=== PATIENT | female | born 1950 | race Caucasian/White ===

== ENCOUNTER 2017-09-14 13:56 | Emergency (ER) | payer MEDICARE ==
[2017-09-14] MEDS: IBUPROFEN 600 MG TABLET. PO (15:17)
== END 2017-09-14 15:17 | disposition home or self-care (01) ==
LOC: ER 13:56
DX: M54.31 Sciatica, right side (principal); E11.9 Type 2 diabetes mellitus without complications; E03.9 Hypothyroidism, unspecified; I10 Essential (primary) hypertension; K21.9 Gastro-esophageal reflux disease without esophagitis; Z87.442 Personal history of urinary calculi; Z86.14 Personal history of Methicillin resistant Staphylococcus aureus infection; Z88.2 Allergy status to sulfonamides; Z88.1 Allergy status to other antibiotic agents; Z91.041 Radiographic dye allergy status
CPT/HCPCS: 99283

== ENCOUNTER → 2017-10-24 | Outpatient (CLI) | payer MEDICARE | END | disposition home or self-care (01) | LOC: MRI 13:47 | DX: M47.894 Other spondylosis, thoracic region (principal); G89.29 Other chronic pain | CPT/HCPCS: 72146 ==

== ENCOUNTER → 2018-02-14 | Outpatient (CLI) | payer MEDICARE | END | disposition home or self-care (01) | LOC: CT 12:51 | DX: N39.0 Urinary tract infection, site not specified (principal); K76.89 Other specified diseases of liver; Z87.442 Personal history of urinary calculi | CPT/HCPCS: 74176 ==

== ENCOUNTER → 2018-05-29 | Outpatient (CLI) | payer MEDICARE ==
[2017-11-18 11:00] VITALS: BP 133/53
[~2018-05-29] MED LIST: AMLO5TAB7 PO; ASPI-482 PO; AZIT250T PO; BENZ200C47 PO; BUPR150T11 PO; CELE200C PO; CIPR250T30 PO; CYCL10TA2 PO; DOXY100T PO; Erythromycin Base PO; FLUO40CA2 PO; GABA-586 PO; INSU100I13 SQ; INSU100I17 SQ; LEVO88TA4 PO; LIRA0.6P2 SQ; LOSA50TA2 PO; MAGN400T22 PO; MECL25TA3 PO; METF10007 PO; METO25TA4 PO; METO50TA6 PO; METO5VIA4 PO; METR500T8 PO; MONT10TA9 PO; NAPR-683 PO; ONDA4TAB10 SL; PANT40TA5 PO; POTA10TA12 PO; RANI300T PO; SIMV20TA3 PO; SPIR25TA PO
--- NOTE | 2018-05-29 10:26 | KCIC ---
EXAMINATION: Magnetic resonance imaging (MRI) of the cervical spine without contrast 05/29/2018 8:45 AM HISTORY: Degenerative disc disease of the cervical spine. Progressing bilateral hand numbness with neck pain. TECHNIQUE: Multiplanar multi-weighted MRI of the cervical spine was performed without intravenous contrast using the standard cervical spine protocol. Contrast information: None administered COMPARISON: Cervical spine radiograph October 06, 2017 FINDINGS: There is minimal retrolisthesis of C6 on C7. Vertebral bodies demonstrate normal signal intensity on all sequences. No acute fracture is identified; however, if trauma is suspected, a CT scan would be a more sensitive examination for fractures. The craniocervical junction is normal. The visualized portions of the skull base and the posterior fossa are normal. The spinal cord demonstrates normal signal intensity on all sequences. There is moderate disc height loss at C6-C7 with endplate remodeling and moderate anterior marginal osteophytosis. There is mild disc height loss at C5-C6 with mild anterior marginal osteophytosis. No soft tissue abnormality is identified. Normal signal voids are present in the vertebral arteries. Cervical spinal cord signal intensity is normal in all sequences. C2-C3: There is mild disc bulge. There is no facet arthropathy. There is no uncovertebral joint disease. There is no neuroforaminal stenosis. There is no spinal canal stenosis. C3-C4: There is a posterior disc osteophyte complex. There is moderate right and mild left facet arthropathy. There is mild uncovertebral joint disease. There is moderate right and mild left neuroforaminal stenosis. There is mild spinal canal stenosis without significant deformity of the cord. C4-C5: There is a posterior disc osteophyte complex with central disc protrusion. There is moderate facet arthropathy. There is mild uncovertebral joint disease. There is moderate bilateral neuroforaminal stenosis. There is mild spinal canal stenosis without deformity of the cord. C5-C6: There is a posterior disc osteophyte complex with central disc extrusion. There is moderate right and mild left facet arthropathy. There is moderate right and mild left uncovertebral joint disease. There is moderate bilateral neuroforaminal stenosis. There is mild spinal canal stenosis. C6-C7: There is a posterior disc osteophyte complex. There is mild facet arthropathy. There is moderate uncovertebral joint disease. There is moderate bilateral neuroforaminal stenosis. There is mild spinal canal stenosis. C7-T1: The disk is normal in configuration. There is no facet arthropathy. There is no uncovertebral joint disease. There is no neuroforaminal stenosis. There is no spinal canal stenosis. IMPRESSION: Mild to moderate degenerative changes of the cervical spine as described in detail above. Electronically signed by: Yarely Crawford MD (05/29/2018 10:22 AM) [id number]
== END | disposition home or self-care (01) ==
LOC: KCIC MRI 08:18
PROVIDERS: ATTEND Physician Assistant Surgical
DX: M47.892 Other spondylosis, cervical region (principal); M25.78 Osteophyte, vertebrae; M50.30 Other cervical disc degeneration, unspecified cervical region; I13.0 Hypertensive heart and chronic kidney disease with heart failure and stage 1 through stage 4 chronic kidney disease, or unspecified chronic kidney disease; N18.2 Chronic kidney disease, stage 2 (mild); I50.9 Heart failure, unspecified; E11.42 Type 2 diabetes mellitus with diabetic polyneuropathy; E11.649 Type 2 diabetes mellitus with hypoglycemia without coma; E11.65 Type 2 diabetes mellitus with hyperglycemia; E11.43 Type 2 diabetes mellitus with diabetic autonomic (poly)neuropathy; E78.5 Hyperlipidemia, unspecified; J45.909 Unspecified asthma, uncomplicated; M81.0 Age-related osteoporosis without current pathological fracture; F41.9 Anxiety disorder, unspecified; F32.9 Major depressive disorder, single episode, unspecified; J21.9 Acute bronchiolitis, unspecified; Z79.4 Long term (current) use of insulin; Z90.89 Acquired absence of other organs; Z88.1 Allergy status to other antibiotic agents; Z88.2 Allergy status to sulfonamides; Z88.3 Allergy status to other anti-infective agents; Z88.5 Allergy status to narcotic agent; Z88.6 Allergy status to analgesic agent; Z88.8 Allergy status to other drugs, medicaments and biological substances; Z82.49 Family history of ischemic heart disease and other diseases of the circulatory system; Z83.3 Family history of diabetes mellitus
CPT/HCPCS: 72141

== ENCOUNTER 2019-03-11 06:49 | Outpatient (CLI) | payer MEDICARE ==
[~2019-03-11] VITALS: Ht 156.2 cm; Wt 73.5 kg
[2019-03-11] VITALS (14 sets, daily range): BP systolic 149–209; BP diastolic 57–87
[~2019-03-11 06:49] MED LIST changes: +AMLO5TAB10 PO; -AMLO5TAB7 PO; -GABA-586 PO; +GABA300C18 PO; +LOSA-73 PO; -LOSA50TA2 PO; +METR-34 PO; -METR500T8 PO; +MONT10TA49 PO; -MONT10TA9 PO
[2019-03-11] MEDS ORDERED: LIDOCAINE 1% PF 2 ML VIAL. ONE (07:19)
[2019-03-11] MEDS ORDERED: IODIXANOL 320 MG/ML 100 ML VIAL. ONE (07:19)
[2019-03-11] MEDS ORDERED: diphenhydrAMINE 50 MG/ML VIAL IVP ONE (07:30)
[2019-03-11] MEDS ORDERED: methylPREDNISolone SOD SUCC PF 125 MG/2 ML VIAL. IV ONE (07:30)
[2019-03-11] MEDS ORDERED: FAMOTIDINE 20 MG/2 ML VIAL IVP ONE (07:30)
[2019-03-11] MEDS ORDERED: POTA10TA12 PO (07:37)
[2019-03-11] MEDS ORDERED: INSU100I17 SQ (07:37)
[2019-03-11] MEDS ORDERED: ATOR10TA60 PO (07:37)
[2019-03-11] MEDS ORDERED: OMEP20CA10 PO (07:37)
[2019-03-11] MEDS ORDERED: ALPR0.254 PO (07:37)
[2019-03-11] MEDS ORDERED: INSU100V13 SQ (07:37)
[2019-03-11] MEDS ORDERED: MELO15TA23 PO (07:37)
[2019-03-11] MEDS ORDERED: LUTE20TA PO (07:37)
[2019-03-11 07:39] LABS: HEMATOCRIT 44.3 % (36.0-47.0); HEMOGLOBIN 15.2 g/dL (12.0-15.5); RED BLOOD COUNT 4.75 x10^6/uL (3.50-5.40); RED CELL DISTRIBUTION WIDTH 13.5 % (11.5-14.5); WHITE BLOOD COUNT 9.6 x10^3/uL (4.0-11.0)
[2019-03-11 07:56] LABS: CALCIUM 9.6 mg/dL (8.5-10.1); GFR 54.8; POTASSIUM 3.7 mmol/L (3.5-5.1); PROTHROMBIN TIME PATIENT 12.7 SEC (11.7-14.0)
[2019-03-11] MEDS ORDERED: diphenhydrAMINE 50 MG/ML VIAL ONE (08:00)
[2019-03-11] MEDS ORDERED: FAMOTIDINE 20 MG/2 ML VIAL ONE (08:00)
[2019-03-11] MEDS ORDERED: methylPREDNISolone SOD SUCC PF 125 MG/2 ML VIAL. ONE (08:00)
[2019-03-11] MEDS ORDERED: HEPARIN for IV BOLUS 10,000 UNIT/10 ML VIAL. ONE (08:26)
[2019-03-11] MEDS ORDERED: NITROGLYCERIN 200 MCG/2 ML SYRINGE FOR CATH/VASC LAB. ONE (08:26)
[2019-03-11] MEDS ORDERED: VERAPAMIL 5 MG/2 ML VIAL. ONE (08:26)
[2019-03-11] MEDS ORDERED: MIDAZOLAM HCL/PF 2 MG/2 ML VIAL. ONE (08:26)
[2019-03-11] MEDS ORDERED: fentaNYL PF VIAL 100 MCG/2 ML VIAL ONE (08:26)
[2019-03-11] MEDS ORDERED: VERAPAMIL 5 MG/2 ML VIAL. IART ONE (09:00)
[2019-03-11] MEDS ORDERED: MIDAZOLAM HCL/PF 2 MG/2 ML VIAL. IV ONE (09:00)
[2019-03-11] MEDS ORDERED: fentaNYL PF VIAL 100 MCG/2 ML VIAL IV ONE (09:00)
[2019-03-11] MEDS ORDERED: HEPARIN for IV BOLUS 10,000 UNIT/10 ML VIAL. IART ONE (09:00)
[2019-03-11] MEDS ORDERED: LIDOCAINE 1% PF 2 ML VIAL. INJ ONE (09:00)
[2019-03-11] MEDS ORDERED: NITROGLYCERIN 200 MCG/2 ML SYRINGE FOR CATH/VASC LAB. IART ONE (09:00)
[2019-03-11] MEDS ORDERED: IODIXANOL 320 MG/ML 100 ML VIAL. IART ONE (09:00)
[2019-03-11] MEDS ORDERED: NITROGLYCERIN SUBLINGUAL 0.4 MG BOTTLE OF 25. SL PRN (09:15)
[2019-03-11] MEDS ORDERED: 0.9 % SODIUM CHLORIDE 10 ML DISP.SYRIN. IV PRN (09:15)
[2019-03-11] MEDS ORDERED: IV 1/2 NORMAL SALINE 1,000 ML IV SCH (09:15)
--- NOTE | 2019-03-11 09:15 | PDOC ---
MODERATE SEDATION ASSESSMENT RISKS/ALTERNATIVES Risks/Alternatives Risks and alternatives of this type of sedation and procedure discussed with: RISK/ALTERNATIVES: Patient H & P ON CHART H & P H & P on chart and reviewed for co-morbid conditions and appropriate labs. H&P ON CHART: Yes STATUS PREG STATUS ASSESSED: N/A MEDS/ALLERGIES REVIEWED Meds/Allergies Reviewed Medications and Allergies including time and route of recently administered narcotics and sedatives. MEDS/ALLERGIES REVIEWED: Yes ASA RATING ASA RATING: II AIRWAY ASSESSMENT Airway Assessment Airway patency, oral function limitations, presence of caps, crowns, dentures, partials, and ability to extend neck assessed. AIRWAY ASSESSMENT: Yes MALLAMPATI SCORE MALLAMPATI SCORE: II PRE-SEDATION ASSESSMENT PRE-SEDATION ASSESSMENT: Yes FRANCE WAGNER MD Mar 11, 2019 09:15
--- NOTE | 2019-03-11 09:19 | CARD ---
MR#: [id number] Date of Study: 03/11/2019 Ordering Physician: FRANCE WAGNER, Referring Physician: FRANCE WAGNER Tech: ENMA ARORA RTR APPROVED REPORT Technologist: ENMA ARORA RTR Nurse: Maria Guadalupe Willard R.N. Procedure(s) performed: Left heart catheterization, selective coronary angiography and left ventricul ography via right transradial approach Fluoro time: 3.5 min Dose: 35 Gycm2 Contrast: 104cc Moderate sedation:28 minutes INDICATION The indication(s) include : Refractory chest pain and frequent PVCs. CSHA Clinical Frailty Scale CSHA Clinical Frailty Scale: Managing Well Heart Failure Heart Failure: No PROCEDURE NARRATIVE After explaining the risks, benefits and alternative options, informed consent was obtained from migue ent. Patient was brought to the cardiac [employer] and right wrist was prepped and draped in the usual fashion after confirming a positive modified Niranjan's test. Arterial access was obtained in the righ t radial artery and a 6 [place]an sheath was inserted. 6 [place]an Julio catheter was used to perform pantera ective angiography of the left and right coronary arteries. 6 [place]an pigtail catheter was used to pe rform left ventriculography. Patient tolerated the procedure well. Hemostasis was achieved using TR band. There were no immediate complications. The following findings were noted. FINDINGS 1. Hemodynamics: Left ventricular end-diastolic pressure of 22 mmHg. No pullback gradient across th e aortic valve. 2. Left ventriculography: Normal left ventricle systolic function with ejection fraction estimated at 60%. No significant mitral regurgitation seen. 3. Coronary angiography: a. The left main coronary artery arose from the left sinus of Valsalva, was short, gave rise to the left anterior descending and left circumflex arteries and did not show any significant stenosis. b. The left anterior descending artery did not show any significant stenosis. c. The left circumflex artery did not show any significant stenosis. d. The right coronary artery was a large and dominant vessel arising from the right sinus of Valsalv a that did not show any significant stenosis. Conclusion 1. No significant coronary artery disease 2. Normal left ventricle systolic function with ejection fraction estimated at 60% Signed by : France Wagner, Electronically Approved : 03/11/2019 09:19:10
[2019-03-11] MEDS ORDERED: LOSARTAN POTASSIUM 50 MG TABLET. PO ONE (10:30)
--- NOTE | 2019-03-11 13:05 | NUR ---
Discharge Note: DAVIN VASQUEZ Discharge instructions and discharge home medications reviewed with patient and Spouse and a copy given. Patient educated about keeping an updated medication list with her at all times and knowing what medications are for. Also educated the importance of always taking blood pressure medication unless told otherwise by physician. All questions have been answered and understanding verbalized. Patient ate breakfast with no issues. The following instructions and handouts were given: Moderate sedation and radial site care and trans-radial angiography post care. Discontinued lines and drains: PIV left forearm, dressing clean dry intact. Patient discharged to home with via wheelchair to [facility].
== END 2019-03-11 12:50 | disposition home or self-care (01) ==
LOC: CCL 06:49
PROVIDERS: ATTEND Internal Medicine Cardiovascular Disease
DX: R07.9 Chest pain, unspecified (principal); I10 Essential (primary) hypertension; E78.00 Pure hypercholesterolemia, unspecified; K21.9 Gastro-esophageal reflux disease without esophagitis; E66.9 Obesity, unspecified; M19.90 Unspecified osteoarthritis, unspecified site; E11.9 Type 2 diabetes mellitus without complications; F41.9 Anxiety disorder, unspecified; F32.9 Major depressive disorder, single episode, unspecified; Z87.442 Personal history of urinary calculi; Z87.440 Personal history of urinary (tract) infections; Z90.49 Acquired absence of other specified parts of digestive tract; Z90.710 Acquired absence of both cervix and uterus; Z98.890 Other specified postprocedural states
CPT/HCPCS: 36415; 80048; 85027; 85610; 85730; 93458; 99152; 99153; C1769; C1892; J1200; J1644; J2250; J2930; J3010; J3490; Q9967